=== PATIENT | male | born 1945 | race Caucasian/White ===

== ENCOUNTER 2019-10-30 23:42 | Emergency (ER) | payer OTHER ==
[~2019-10-30] VITALS: Ht 170.2 cm; Wt 54.4 kg
[2019-10-30 23:42] VITALS: BP 79/46
--- NOTE | 2019-10-30 23:45 | NUR ---
73 Y/O MALE BIBA FROM [facility] FOR LOW SPO2 OF 50% RA. +AGONAL BREATHING. +FEVER OF 101.3 RECTAL. ON NON REBREATHER 15L. FLACC 7. PALE SKIN COLOR. CAP REFILL >3 SECONDS. PMH: DEMENTIA, HTN, TIA, CHF, HIGH CHOLOSTEROL NKA
[2019-10-30] MEDS ORDERED: INTUBATION KIT MC ONE (23:49)
--- NOTE | 2019-10-30 23:53 | NUR ---
PT O2 SATURIATON 50'S. INTUBATED WITH 7.5 ETT, AT 23 CM LIP LINE.
[2019-10-30] MEDS ORDERED: NACL 0.9% 1,000 ML IV SCH (23:57)
[2019-10-30] MEDS ORDERED: NOREPINEPHRINE 4 MG/4 ML VIAL IV ONE (23:59)
[2019-10-31] MEDS ORDERED: NOREPINEPHRINE 8 MG in DEXTROSE 5% 250 ML IV PRN ×2
--- NOTE | 2019-10-31 | NUR ---
EKG PERFORMED AT BEDSIDE
--- NOTE | 2019-10-31 00:15 | NUR ---
Note santos in ED - 10/31/19 at 0142 by JOSELINE FAMILY NOTIFED -- SPOKE WITH LEONILA SANCHEZ (NEXT OF KIN LISTED ON PAPERWORK). RECEIVED PERMISSION TO RELASE BODY TO [facility]. WILL FOLLOW UP NEEDED.
[2019-10-31] MEDS ORDERED: PROPOFOL 1000 MG/100 ML PREMIX 100 ML IV ONE (00:40)
--- NOTE | 2019-10-31 00:40 | NUR ---
NOTICIED BRADYCARDIA ON MONITOR. DR CLEMENT AWARE.
[2019-10-31] MEDS ORDERED: DOPPLER MC ONE (00:42)
--- NOTE | 2019-10-31 00:42 | NUR ---
DR CLEMENT AT BEDSIDE.
--- NOTE | 2019-10-31 00:46 | NUR ---
SEE CODE SHEET FOR MEDICATIONS/ACTIONS DURING CODE.
--- NOTE | 2019-10-31 00:54 | NUR ---
TIME OF CALLED.
--- NOTE | 2019-10-31 01:15 | NUR ---
FAMILY NOTIFED -- SPOKE WITH LEONILA SANCHEZ (NEXT OF KIN LISTED ON PAPERWORK). RECEIVED PERMISSION TO RELASE BODY TO [facility]. WILL FOLLOW UP NEEDED.
--- NOTE | 2019-10-31 01:21 | NUR ---
[facility] REPAIR[facility], INFANT LEAD TEACHER TO CALL BACK.
--- NOTE | 2019-10-31 01:25 | NUR ---
[facility] CONTACTED SPOKE WITH CARMEN MA, BODY RELEASED AT THIS TIME. .
--- NOTE | 2019-10-31 02:49 | NUR ---
[facility] WASH[facility] STRINGING MACHINE OPERATOR IVÁN BARR; BODY RELEASED. .
--- NOTE | 2019-10-31 03:28 | NUR ---
CALLED [facility]. [phone] SPOKE WITH MORTUARY BRICK SETTER OPERATOR. STATED THEY WILL CALL BACK TO FIND SOMEONE TO AMBULANCE OPERATIONS SUPERVISOR THE BODY.
--- NOTE | 2019-10-31 04:30 | NUR ---
MORTUARY SELF PROPELLED DREDGE OPERATOR (TREVA) ARRIVED TO [facility] BODY.
[2019-10-31 04:37] VITALS: BP 92/44
--- NOTE | 2019-10-31 04:37 | NUR ---
MORTUARY REPRSENTATIVE PICKED UP BODY TO TAKE TO [facility].
--- NOTE | 2019-11-03 08:23 | NUR ---
LATE ENTRY- NORMAL SALINE 0.9% IV DISCONTINUED AT 0054.
--- NOTE | 2019-11-03 08:24 | NUR ---
LATE ENTRY- DEXTROSE 5% IV DISCONTINUED AT 0054.
== END 2019-10-31 00:54 | disposition expired ==
LOC: MED 23:42
DX: J12.1 Respiratory syncytial virus pneumonia (principal); J96.90 Respiratory failure, unspecified, unspecified whether with hypoxia or hypercapnia; F03.90 Unspecified dementia, unspecified severity, without behavioral disturbance, psychotic disturbance, mood disturbance, and anxiety; I10 Essential (primary) hypertension; I50.9 Heart failure, unspecified; I63.9 Cerebral infarction, unspecified
CPT/HCPCS: 31500; 71045; 99285; J3490; J7030; J7060; Q0092; 99283